=== PATIENT | female | born 1950 | race Caucasian/White ===

== ENCOUNTER → 2016-07-16 | Outpatient (CLI) | payer MEDICARE, OTHER ==
[~2016-07-16] MED LIST: FURO20TA4 PO; NAPR220T61 PO
[2016-07-16 19:32] LABS: ALBUMIN 4.1 G/DL (3.5-5.0); ALBUMIN/GLOBULIN RATIO 0.9 RATIO (1.1-2.2); ALKALINE PHOSPHATASE 97 U/L (38-126); ALT (SGPT) 29 U/L (9-52); ANION GAP 11 MEQ/L (5-15); AST (SGOT) 18 U/L (14-36); BUN/CREATININE RATIO 16 RATIO (6-26); CALCIUM 9.3 MG/DL (8.4-10.2); CHLORIDE 101 MEQ/L (98-107); CO2 - CARBON DIOXIDE 31 MEQ/L (22-30); CREATININE 0.8 MG/DL (0.7-1.2); GLOMERULAR FILTRATION RATE 72; GLUCOSE 112 MG/DL (65-110); POTASSIUM 4.3 MEQ/L (3.6-5); SODIUM 143 MEQ/L (134-144); TOTAL PROTEIN 8.5 G/DL (6.3-8.2)
[2016-07-16 19:40] LABS: PROBNP 56 PG/ML (0-175)
--- NOTE | 2016-07-17 08:53 | DI ---
INDICATION: ITS.REASON: M79.89, R06.89 PROCEDURE: CHEST 2-VIEWS UPRIGHT (PA \T\ LAT) Encounter: Initial COMPARISON: None FINDINGS: There is mild interstitial prominence bilaterally without focal consolidation. There is no pleural effusion or pneumothorax. The heart size and mediastinal contours are within normal limits. There is no significant skeletal abnormality. IMPRESSION: Mild interstitial prominence could be due to pulmonary edema or atypical pneumonia. .
== END ==
LOC: IMA 18:57
PROVIDERS: ATTEND Nurse Practitioner
DX: M79.89 Other specified soft tissue disorders (principal); R91.8 Other nonspecific abnormal finding of lung field; R06.89 Other abnormalities of breathing
CPT/HCPCS: 36415; 80053; 83880